=== PATIENT | male | born 1995 | race Caucasian/White ===

== ENCOUNTER 2023-04-06 12:02 | Emergency (ER) | payer OTHER ==
[~2023-04-06] VITALS: Ht 177.8 cm; Wt 127.3 kg
[2023-04-06 12:08] VITALS: TEMP 98.1
[2023-04-06 13:31] VITALS: BP 132/68; PULSE 78; RESP 16
[2023-04-06] MEDS ORDERED: IBUP-1492 PO (13:32)
== END 2023-04-06 13:55 | disposition home or self-care (01) ==
LOC: EMS 12:02
DX: S40.011A Contusion of right shoulder, initial encounter (principal); S60.041A Contusion of right ring finger without damage to nail, initial encounter; W18.39XA Other fall on same level, initial encounter; Y93.89 Activity, other specified; Y92.89 Other specified places as the place of occurrence of the external cause; Y99.0 Civilian activity done for income or pay
CPT/HCPCS: 99284; 73030-TC; 73120-TC; Z7502